=== PATIENT | male | born 1970 | race Caucasian/White ===

== ENCOUNTER 2024-12-14 13:02 | Emergency (ER) | payer OTHER ==
[2024-12-14 13:21] VITALS: TEMP 98.2
[2024-12-14 13:31] LABS: Absolute Neutrophil Ct (ANC) 11.28 x10^3/uL (1.78-5.38); BASOPHIL % 0.1 % (0.2-1.2); Basophil (Absolute #) 0.01 x10^3/uL (0.01-0.08); Eosinophil (Absolute #) 0 x10^3/uL (0.04-0.54); Hematocrit 28.8 % (40.1-51.0); Hemoglobin 9.9 g/dL (13.7-17.5); IMMATURE GRAN # 0.05 x10^3u/L (0.001-0.031); IMMATURE GRAN % 0.4 % (0.001-0.429); Lymphocyte (Absolute #) 0.61 x10^3/uL (1.32-3.57); Lymphocytes % 4.9 % (21.8-53.1); Mean Cell Volume 92.3 fL (79.0-92.2); Mean Corpuscular Hemoglobin 31.7 pg (25.7-32.2); Mean Corpuscular Hgb Concent. 34.4 g/dL (32.3-36.5); Mean Platelet Volume 9.8 fL (9.4-12.4); Monocyte (Absolute #) 0.53 x10^3/uL (0.30-0.82); Monocytes % 4.2 % (5.3-12.2); Neutrophil % 90.4 % (34.0-67.9); Platelet Count 291 x10^3/uL (163-337); Red Blood Count 3.12 x10^6/uL (4.63-6.08); Red Cell Distribution Width 13.2 % (11.6-14.4); White Blood Count 12.5 x10^3/uL (4.23-9.07)
--- NOTE | 2024-12-14 13:37 | ERPHSYRPT ---
- History of Present Illness Time Seen by Provider: 12/14/24 13:20 Historian: patient Exam Limitations: no limitations Patient Subjective Stated Complaint: "blood in stools" Patient states his stools have been black for 3 days. Denies diarrhea or vomiting. Triage Nursing Assessment: Patient brought back to ER in a W/C . Patient able to transfer self from chair to bed with a cane. No SOB. Weak, dry, non-productive cough present. Pale. NO tenderness to abdomen with palpation. He is alert and oriented; anxious, rambling at times. Physician History: 54-year-old male history of CHF presents to our ED for evaluation of dark tarry stools and shortness of breath. Patient observed the dark tarry stools about 2 to 3 days ago. Patient also complains of mild epigastric discomfort. Patient looked up his symptoms on [employer] and found that it could be a gastrointestinal bleed so decided to come to our ED for an evaluation. No trauma no fever no chest pain. No nausea vomiting or diaphoresis. Symptoms are mild to moderate in intensity. No specific worsening or improving factors. Patient is not on blood thinners. Patient otherwise feels well. He voices no other complaints or concerns at this time. Portions of this note were created with voice recognition technology. There may be grammatical, spelling, punctuation or sound alike errors Timing/Duration: today Activities at Onset: none Quality: aching Abdominal Pain Onset Location: epigastric Pain Radiation: no radiation Severity of Pain-Max: moderate Severity of Pain-Current: mild Modifying Factors: Improves With: nothing Associated Symptoms: other (Dark tarry stools) Previous symptoms: no prior history Allergies/Adverse Reactions: No Known Drug Allergies Allergy (Verified 12/14/24 13:09) Home Medications: Furosemide 40 mg [Lasix 40 MG] 40 mg PO DAILY 12/14/24 [History] Sacubitril/Valsartan [Entresto 24 mg-26 mg Tablet] 1 tab PO BID 12/14/24 [History] Hx Tetanus, Diphtheria Vaccination/Date Given: Yes Immunizations Up to Date: Yes Travel Risk - International Travel Have you traveled outside of the country in past 3 weeks: No - Emerging Infectious Disease Are you exhibiting symptoms associated with any current EIDs: Yes Symptoms: Abdominal Pain, Cough: New Onset, Headaches/Body Aches/, Shortness of Breath, Other (Please Comment) Comment: sore throat - Review of Systems Constitutional: No Symptoms, No Fever, No Chills Eyes: No Symptoms Ears, Nose, & Throat: No Symptoms Respiratory: No Symptoms, No Cough, No Dyspnea Cardiac: No Symptoms, No Chest Pain, No Edema, No Syncope Abdominal/Gastrointestinal: No Symptoms, No Abdominal Pain, No Nausea, No Vom iting, No Diarrhea Genitourinary Symptoms: No Symptoms, No Dysuria Musculoskeletal: No Symptoms, No Back Pain, No Neck Pain Skin: No Symptoms, No Rash Neurological: No Symptoms, No Dizziness, No Focal Weakness, No Sensory Changes Psychological: No Symptoms Endocrine: No Symptoms Hematologic/Lymphatic: No Symptoms Immunological/Allergic: No Symptoms All Other Systems: Reviewed and Negative - Past Medical History Pertinent Past Medical History: Yes Cardiac History: Congestive Heart Failure 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 - Past Surgical History Past Surgical History: Yes Musculoskeletal: Orthopedic Surgery - Social History Smoking Status: Current every day smoker Exposure to second hand smoke: Yes Drug Use: marijuana - Social Determinants of Health Will the patient participate in the screening: Declined to provide - Nursing Vital Signs Nursing Vital Signs: Initial Vital Signs Pulse Rate 107 H 12/14/24 13:09 Respiratory Rate 14 12/14/24 13:09 Blood Pressure 109/79 12/14/24 13:09 O2 Sat by Pulse Oximetry 95 12/14/24 13:09 Pain Scale Pain Intensity 4 - Physical Exam General Appearance: no apparent distress, alert Eye Exam: PERRL/EOMI, eyes nml inspection Ears, Nose, Throat Exam: normal ENT inspection, pharynx normal, moist mucous membranes Neck Exam: normal inspection, non-tender, supple, full range of motion Respiratory Exam: normal breath sounds, lungs clear, airway intact, No respiratory distress Cardiovascular Exam: regular rate/rhythm, normal heart sounds Gastrointestinal/Abdomen Exam: soft, tenderness (Epigastric tenderness), No mass Back Exam: normal inspection, normal range of motion, No CVA tenderness, No vertebral tenderness Extremity Exam: normal inspection, normal range of motion, pelvis stable Neurologic Exam: alert, oriented x 3, cooperative, normal mood/affect, sensation nml, No motor deficits Skin Exam: normal color, warm, dry Lymphatic Exam: No adenopathy SpO2 Interpretation: normal SpO2: 98 O2 Delivery: Room Air - Course Nursing assessment & vital signs reviewed: Yes EKG Interpreted by Me: RATE ([id number]), Sinus Tach, NORMAL AXIS, NORMAL INTERVALS, NORMAL QRS - Radiology Exams Chest X-ray Interpretation: Teleradiologist Report (No acute findings) Ordered Tests: Active Orders 24 hr Category Date Time Status Abstract Checker STAT Care 12/14/24 13:20 Completed EKG-ER Only STAT Care 12/14/24 13:19 Completed IV Insertion STAT Care 12/14/24 13:19 Completed Pulse Oximetry (ED) STAT Care 12/14/24 13:19 Completed ABDOMEN AND PELVIS W/0 CONTRAS [CT] Stat Exams 12/14/24 13:37 Completed CHEST 1 VIEW (PORTABLE) Stat Exams 12/14/24 15:37 Completed CBC W DIFF Stat Lab 12/14/24 13:26 Completed CMP Stat Lab 12/14/24 13:26 Completed LIPASE Stat Lab 12/14/24 12:35 Completed Lactic Acid Stat Lab 12/14/24 13:19 Completed NT PRO BNPII Stat Lab 12/14/24 13:26 Completed TROPONIN Q4H Lab 12/14/24 13:26 Completed TROPONIN Q4H Lab 12/14/24 15:40 Completed TROPONIN Q4H Lab 12/14/24 21:14 Completed UA W/RFX UR CULTURE Stat Lab 12/14/24 14:17 Completed Urine Triage Profile Stat Lab 12/14/24 14:17 Completed Medication Summary Discontinued Medications Generic Name Dose Route Start Last Admin Trade Name Freq PRN Reason Stop Dose Admin Pantoprazole Sodium 80 mg/ 500 mls @ 50 mls/hr 12/14/24 16:00 12/14/24 16:26 Sodium Chloride IV 12/15/24 01:59 50 mls/hr .Q10H RAMEZ 50 mls/hr Administration Lactated Ringer's 1,000 mls @ 50 mls/hr 12/14/24 16:30 12/14/24 16:27 Lactated Ringers IV 01/13/25 16:29 50 mls/hr .Q20H RAMEZ Administration Lactated Ringer's Confirm 12/14/24 16:27 Lactated Ringers Administered 12/14/24 16:28 Dose 1,000 mls @ ud IV .STK-MED ONE Ondansetron HCl 4 mg 12/14/24 17:32 12/14/24 17:33 Ondansetron Hcl 4 Mg/2 Ml Vial IV 12/14/24 17:33 4 mg STAT ONE Administration Ondansetron HCl Confirm 12/14/24 17:33 Ondansetron Hcl 4 Mg/2 Ml Vial Administered 12/14/24 17:34 Dose 4 mg .ROUTE .STK-MED ONE Lab/Rad Data: Laboratory Result Diagrams 12/14/24 13:26 12/14/24 13:26 Laboratory Results 12/14/24 12/14/24 12/14/24 Range/Units 21:14 17:06 15:40 WBC (4.23-9.07) x10^3/uL RBC (4.63-6.08) x10^6/uL Hgb (13.7-17.5) g/dL Hct (40.1-51.0) % MCV (79.0-92.2) fL MCH (25.7-32.2) pg MCHC (32.3-36.5) g/dL RDW (11.6-14.4) % Plt Count (163-337) x10^3/uL MPV (9.4-12.4) fL Gran % (34.0-67.9) % Immature Gran % (Auto) (0.001-0.429) % Nucleat RBC Rel Count (0.00-0.2) % Eos # (Auto) (0.04-0.54) x10^3/uL Immature Gran # (Auto) (0.001-0.031) x10^3u/L Absolute Lymphs (auto) (1.32-3.57) x10^3/uL Absolute Monos (auto) (0.30-0.82) x10^3/uL Absolute Nucleated RBC (0.00-0.012) x10^3u/L Lymphocytes % (21.8-53.1) % Monocytes % (5.3-12.2) % Eosinophils % (0.8-7.0) % Basophils % (0.2-1.2) % Absolute Granulocytes (1.78-5.38) x10^3/uL Basophils # (0.01-0.08) x10^3/uL Sodium (135-145) mmol/L Potassium (3.5-5.1) mmol/L Chloride (98-107) mmol/L Carbon Dioxide (22-30) mmol/L Anion Gap (5-15) MEQ/L BUN (9-20) mg/dL Creatinine (0.66-1.25) mg/dL Estimated GFR ML/MIN Glucose (74-106) mg/dL Lactic Acid (0.4-2.0) Calcium (8.4-10.2) mg/dL Total Bilirubin (0.2-1.3) mg/dL AST (17-59) U/L ALT (0-50) U/L Alkaline Phosphatase (38-126) U/L Troponin I 0.053 H* 0.044 H* (0.000-0.033) ng/mL NT-Pro-B Natriuret Pep (<300) pg/mL Serum Total Protein (6.3-8.2) g/dL Albumin (3.5-5.0) g/dL Lipase (23-300) U/L Urine Color (Yellow) Urine Appearance (Clear) Urine pH (4.6-8.0) Ur Specific [place] (1.005-1.030) Urine Protein (Negative) Urine Glucose (UA) (Negative) mg/dL Urine Ketones (Negative) Urine Blood (Negative) Urine Nitrite (Negative) Urine Bilirubin (Negative) Urine Urobilinogen (0.2) mg/dL Ur Leukocyte Esterase (Negative) U Hyaline Cast (Auto) (0-2) /LPF Urine Microscopic RBC (0-5) /HPF Urine Microscopic WBC (0-5) /HPF Ur Epithelial Cells (None Seen) /HPF Urine Bacteria (None Seen) /HPF Urine Culture Reflexed (NO) Urine Opiates Level (NEGATIVE) Ur Methadone (NEGATIVE) Urine Barbiturates (NEGATIVE) Ur Phencyclidine (PCP) (NEGATIVE) Urine Amphetamine (NEGATIVE) U Benzodiazepine Level (NEGATIVE) Urine Cocaine (NEGATIVE) Urine Marijuana (THC) (NEGATIVE) ABO Group O Rh Factor POSITIVE Antibody Screen NEGATIVE (NEGATIVE) 12/14/24 12/14/24 12/14/24 Range/Units 14:17 14:17 13:26 WBC (4.23-9.07) x10^3/uL RBC (4.63-6.08) x10^6/uL Hgb (13.7-17.5) g/dL Hct (40.1-51.0) % MCV (79.0-92.2) fL MCH (25.7-32.2) pg MCHC (32.3-36.5) g/dL RDW (11.6-14.4) % Plt Count (163-337) x10^3/uL MPV (9.4-12.4) fL Gran % (34.0-67.9) % Immature Gran % (Auto) (0.001-0.429) % Nucleat RBC Rel Count (0.00-0.2) % Eos # (Auto) (0.04-0.54) x10^3/uL Immature Gran # (Auto) (0.001-0.031) x10^3u/L Absolute Lymphs (auto) (1.32-3.57) x10^3/uL Absolute Monos (auto) (0.30-0.82) x10^3/uL Absolute Nucleated RBC (0.00-0.012) x10^3u/L Lymphocytes % (21.8-53.1) % Monocytes % (5.3-12.2) % Eosinophils % (0.8-7.0) % Basophils % (0.2-1.2) % Absolute Granulocytes (1.78-5.38) x10^3/uL Basophils # (0.01-0.08) x10^3/uL Sodium (135-145) mmol/L Potassium (3.5-5.1) mmol/L Chloride (98-107) mmol/L Carbon Dioxide (22-30) mmol/L Anion Gap (5-15) MEQ/L BUN (9-20) mg/dL Creatinine (0.66-1.25) mg/dL Estimated GFR ML/MIN Glucose (74-106) mg/dL Lactic Acid (0.4-2.0) Calcium (8.4-10.2) mg/dL Total Bilirubin (0.2-1.3) mg/dL AST (17-59) U/L ALT (0-50) U/L Alkaline Phosphatase (38-126) U/L Troponin I (0.000-0.033) ng/mL NT-Pro-B Natriuret Pep 301 (<300) pg/mL Serum Total Protein (6.3-8.2) g/dL Albumin (3.5-5.0) g/dL Lipase (23-300) U/L Urine Color Yellow (Yellow) Urine Appearance Clear (Clear) Urine pH 6.0 (4.6-8.0) Ur Specific [place] 1.020 (1.005-1.030) Urine Protein 30 (Negative) Urine Glucose (UA) Negative (Negative) mg/dL Urine Ketones Negative (Negative) Urine Blood Negative (Negative) Urine Nitrite Negative (Negative) Urine Bilirubin Negative (Negative) Urine Urobilinogen 0.2 (0.2) mg/dL Ur Leukocyte Esterase Negative (Negative) U Hyaline Cast (Auto) 3-5 A (0-2) /LPF Urine Microscopic RBC 0-2 (0-5) /HPF Urine Microscopic WBC 0-2 (0-5) /HPF Ur Epithelial Cells None Seen (None Seen) /HPF Urine Bacteria None Seen (None Seen) /HPF Urine Culture Reflexed NO (NO) Urine Opiates Level NEGATIVE (NEGATIVE) Ur Methadone NEGATIVE (NEGATIVE) Urine Barbiturates NEGATIVE (NEGATIVE) Ur Phencyclidine (PCP) NEGATIVE (NEGATIVE) Urine Amphetamine POSITIVE A (NEGATIVE) U Benzodiazepine Level NEGATIVE (NEGATIVE) Urine Cocaine NEGATIVE (NEGATIVE) Urine Marijuana (THC) NEGATIVE (NEGATIVE) ABO Group Rh Factor Antibody Screen (NEGATIVE) 12/14/24 12/14/24 12/14/24 Range/Units 13:26 13:26 13:26 WBC 12.5 H (4.23-9.07) x10^3/uL RBC 3.12 L (4.63-6.08) x10^6/uL Hgb 9.9 L (13.7-17.5) g/dL Hct 28.8 L (40.1-51.0) % MCV 92.3 H (79.0-92.2) fL MCH 31.7 (25.7-32.2) pg MCHC 34.4 (32.3-36.5) g/dL RDW 13.2 (11.6-14.4) % Plt Count 291 (163-337) x10^3/uL MPV 9.8 (9.4-12.4) fL Gran % 90.4 H (34.0-67.9) % Immature Gran % (Auto) 0.4 (0.001-0.429) % Nucleat RBC Rel Count 0.0 (0.00-0.2) % Eos # (Auto) 0 L (0.04-0.54) x10^3/uL Immature Gran # (Auto) 0.05 H (0.001-0.031) x10^3u/L Absolute Lymphs (auto) 0.61 L (1.32-3.57) x10^3/uL Absolute Monos (auto) 0.53 (0.30-0.82) x10^3/uL Absolute Nucleated RBC 0.00 (0.00-0.012) x10^3u/L Lymphocytes % 4.9 L (21.8-53.1) % Monocytes % 4.2 L (5.3-12.2) % Eosinophils % 0.0 L (0.8-7.0) % Basophils % 0.1 L (0.2-1.2) % Absolute Granulocytes 11.28 H (1.78-5.38) x10^3/uL Basophils # 0.01 (0.01-0.08) x10^3/uL Sodium 135 (135-145) mmol/L Potassium 4.3 (3.5-5.1) mmol/L Chloride 106 (98-107) mmol/L Carbon Dioxide 16 L* (22-30) mmol/L Anion Gap 17.8 H (5-15) MEQ/L BUN 45 H (9-20) mg/dL Creatinine 0.87 (0.66-1.25) mg/dL Estimated GFR 101.3 ML/MIN Glucose 154 H (74-106) mg/dL Lactic Acid (0.4-2.0) Calcium 9.8 (8.4-10.2) mg/dL Total Bilirubin 0.30 (0.2-1.3) mg/dL AST 30 (17-59) U/L ALT 24 (0-50) U/L Alkaline Phosphatase 74 (38-126) U/L Troponin I 0.049 H* (0.000-0.033) ng/mL NT-Pro-B Natriuret Pep (<300) pg/mL Serum Total Protein 6.4 (6.3-8.2) g/dL Albumin 3.7 (3.5-5.0) g/dL Lipase (23-300) U/L Urine Color (Yellow) Urine Appearance (Clear) Urine pH (4.6-8.0) Ur Specific [place] (1.005-1.030) Urine Protein (Negative) Urine Glucose (UA) (Negative) mg/dL Urine Ketones (Negative) Urine Blood (Negative) Urine Nitrite (Negative) Urine Bilirubin (Negative) Urine Urobilinogen (0.2) mg/dL Ur Leukocyte Esterase (Negative) U Hyaline Cast (Auto) (0-2) /LPF Urine Microscopic RBC (0-5) /HPF Urine Microscopic WBC (0-5) /HPF Ur Epithelial Cells (None Seen) /HPF Urine Bacteria (None Seen) /HPF Urine Culture Reflexed (NO) Urine Opiates Level (NEGATIVE) Ur Methadone (NEGATIVE) Urine Barbiturates (NEGATIVE) Ur Phencyclidine (PCP) (NEGATIVE) Urine Amphetamine (NEGATIVE) U Benzodiazepine Level (NEGATIVE) Urine Cocaine (NEGATIVE) Urine Marijuana (THC) (NEGATIVE) ABO Group Rh Factor Antibody Screen (NEGATIVE) 12/14/24 12/14/24 Range/Units 13:19 12:35 WBC (4.23-9.07) x10^3/uL RBC (4.63-6.08) x10^6/uL Hgb (13.7-17.5) g/dL Hct (40.1-51.0) % MCV (79.0-92.2) fL MCH (25.7-32.2) pg MCHC (32.3-36.5) g/dL RDW (11.6-14.4) % Plt Count (163-337) x10^3/uL MPV (9.4-12.4) fL Gran % (34.0-67.9) % Immature Gran % (Auto) (0.001-0.429) % Nucleat RBC Rel Count (0.00-0.2) % Eos # (Auto) (0.04-0.54) x10^3/uL Immature Gran # (Auto) (0.001-0.031) x10^3u/L Absolute Lymphs (auto) (1.32-3.57) x10^3/uL Absolute Monos (auto) (0.30-0.82) x10^3/uL Absolute Nucleated RBC (0.00-0.012) x10^3u/L Lymphocytes % (21.8-53.1) % Monocytes % (5.3-12.2) % Eosinophils % (0.8-7.0) % Basophils % (0.2-1.2) % Absolute Granulocytes (1.78-5.38) x10^3/uL Basophils # (0.01-0.08) x10^3/uL Sodium (135-145) mmol/L Potassium (3.5-5.1) mmol/L Chloride (98-107) mmol/L Carbon Dioxide (22-30) mmol/L Anion Gap (5-15) MEQ/L BUN (9-20) mg/dL Creatinine (0.66-1.25) mg/dL Estimated GFR ML/MIN Glucose (74-106) mg/dL Lactic Acid 1.2 (0.4-2.0) Calcium (8.4-10.2) mg/dL Total Bilirubin (0.2-1.3) mg/dL AST (17-59) U/L ALT (0-50) U/L Alkaline Phosphatase (38-126) U/L Troponin I (0.000-0.033) ng/mL NT-Pro-B Natriuret Pep (<300) pg/mL Serum Total Protein (6.3-8.2) g/dL Albumin (3.5-5.0) g/dL Lipase 161 (23-300) U/L Urine Color (Yellow) Urine Appearance (Clear) Urine pH (4.6-8.0) Ur Specific [place] (1.005-1.030) Urine Protein (Negative) Urine Glucose (UA) (Negative) mg/dL Urine Ketones (Negative) Urine Blood (Negative) Urine Nitrite (Negative) Urine Bilirubin (Negative) Urine Urobilinogen (0.2) mg/dL Ur Leukocyte Esterase (Negative) U Hyaline Cast (Auto) (0-2) /LPF Urine Microscopic RBC (0-5) /HPF Urine Microscopic WBC (0-5) /HPF Ur Epithelial Cells (None Seen) /HPF Urine Bacteria (None Seen) /HPF Urine Culture Reflexed (NO) Urine Opiates Level (NEGATIVE) Ur Methadone (NEGATIVE) Urine Barbiturates (NEGATIVE) Ur Phencyclidine (PCP) (NEGATIVE) Urine Amphetamine (NEGATIVE) U Benzodiazepine Level (NEGATIVE) Urine Cocaine (NEGATIVE) Urine Marijuana (THC) (NEGATIVE) ABO Group Rh Factor Antibody Screen (NEGATIVE) - Progress Progress: improved Progress Note: Regional declined transfer at approximately 5 PM because they are not capable of performing interventional procedure in the event the patient's GI bleed worsens We contacted [facility]. I spoke to Dr. Aleman hospitalist and Dr. Oliver javascript developer at 5:24 PM. They accepted transfer to [facility]. 12/14/24 17:27 54-year-old male presents to emergency department for evaluation of dark tarry stools and epigastric pain. CT abdomen pelvis negative for acute intra- abdominal pathology. CT abdomen pelvis suggestive of cystitis however UA negative for UTI. Troponin elevated however patient without chest pain shortness of breath. Patient's hemoglobin compared to hemoglobin obtained at outside hospital in October. There has been a 2 g hemoglobin drop. Patient with tachycardia however in light of patient's history of CHF careful administration of IV fluids implemented. In light of patient's cardiac involvement tachycardia elevated troponin and downtrending hemoglobin likely secondary to a GI bleed patient transferred to [facility] for higher level of care. Plan of care discussed with patient. Patient agreed to transfer to [facility] for further evaluation and treatment. Portions of this note were created with voice recognition technology. There may be grammatical, spelling, punctuation or sound alike errors Complexity of problem addressed is moderate acute complicated. No critical care time. Complex of data reviewed and analyzed is extensive. Test ordered chest reviewed results analyzed and correlated clinically with history and physical exam. Management discussed with both hospitalist and javascript developer. Patient's medical records reviewed from outside hospital. Risk of complication and or risk of morbidity/mortality of patient management is high. Patient requires hospitalization for further evaluation and treatment. Patient requires transfer to higher level of care. Vital stable. Time spent to discharge patient is approximately 20 minutes. Plan of care established via shared decision making. No social determinants of health present to impede follow-up. Portions of this note were created with voice recognition technology. There may be grammatical, spelling, punctuation or sound alike errors 12/15/24 04:28 Counseled pt/family regarding: lab results, diagnosis, rad results - Departure Departure Disposition: Transfer Clinical Impression: GI bleed, Tachycardia, Methamphetamine use, Symptomatic anemia, Metabolic ac idosis, Dehydration Condition: Stable Critical Care Time: No Referrals: DOCTOR,NO FAMILY [Primary Care Provider] - Follow up/PCP as directed
[2024-12-14 14:10] LABS: ALBUMIN 3.7 g/dL (3.5-5.0); ANION GAP 17.8 MEQ/L (5-15); BILIRUBIN,TOTAL 0.3 mg/dL (0.2-1.3); Calcium 9.8 mg/dL (8.4-10.2); Creatinine 1 0.87 mg/dL (0.66-1.25); EST GLOMERULAR FILTRATION RATE 101.3 ML/MIN; Potassium 4.3 mmol/L (3.5-5.1); Total Protein 6.4 g/dL (6.3-8.2)
[2024-12-14 14:28] LABS: Appearance Clear (Clear); Bacteria None Seen /HPF (None Seen); Bilirubin Negative (Negative); Blood Negative (Negative); Epithelial Cells None Seen /HPF (None Seen); Glucose, Urine Negative (Negative); Ketones Negative (Negative); Leukocyte Esterase Negative (Negative); Nitrite Negative (Negative); Protein,Urine Dip 30 (Negative); RBC 0-2 /HPF (0-5); Urobilinogen 0.2 mg/dL (0.2); WBC 0-2 /HPF (0-5)
[2024-12-14 14:45] LABS: Amphetamine,Urine POSITIVE (NEGATIVE); Barbiturate,Urine NEGATIVE (NEGATIVE); Benzodiazepine,Urine NEGATIVE (NEGATIVE); Cocaine,Urine NEGATIVE (NEGATIVE); Methadone,Urine NEGATIVE (NEGATIVE); Opiate,Urine NEGATIVE (NEGATIVE); PCP,Urine NEGATIVE (NEGATIVE); THC,Urine NEGATIVE (NEGATIVE)
--- NOTE | 2024-12-14 14:51 | XRAY ---
Indication: Pain. Multiple contiguous images obtained through abdomen and pelvis without contrast. Comparison: None Mild diffuse respiration artifact and beam artifact from right total hip arthroplasty. Lung bases grossly clear. Heart not enlarged. Noncontrasted stomach and bowel loops appear nonobstructed. Appendix not clearly visualized. Scattered sigmoid diverticulosis without diverticulitis. Mildly distended urinary bladder demonstrates moderate circumferential wall thickening, possible cystitis. Multiple nonobstructing bilateral renal calculi, largest 7 mm left lower pole. No free fluid/air. Remaining liver, gallbladder, pancreas, spleen, adrenal glands, kidneys, ureters, and bladder are unremarkable for noncontrast exam. Minimal aortic calcifications without AAA. Osseous structures intact with osteopenia, mild/moderate multilevel thoracolumbar degenerative spondylosis greatest at L5-S1, and markedly advanced left hip degenerative arthropathy. Impression: 1. Respiration artifact and beam artifact from right hip arthroplasty. 2. Abnormal urinary bladder wall circumferential wall thickening. Rule out cholecystitis. 3. Chronic findings including sigmoid diverticulosis, nonobstructing bilateral renal micro-calculi, arteriosclerotic disease, and chronic bony findings. 4. Remaining CT abdomen/pelvis without contrast exam is negative.
--- NOTE | 2024-12-14 15:59 | XRAY ---
Indication: Short of breath. Comparison: None Portable chest demonstrates normal heart and lungs. Bony thorax intact with osteopenia and mild degenerative changes. No acute findings.
[2024-12-14] MEDS: PROTONIX 40 MG IV*** 80 MG in Sodium Chloride 0.9% 500 ML 500 ML IV SCH (16:26)
[2024-12-14] MEDS ORDERED: Lactated Ringers 1,000 ML IV ONE (16:27)
[2024-12-14] MEDS: Lactated Ringers 1,000 ML IV SCH (16:27)
[2024-12-14] MEDS: Zofran 4 MG/2 ML VIAL IV ONE (17:33)
[2024-12-14] MEDS ORDERED: Zofran 4 MG/2 ML VIAL ONE (17:33)
[2024-12-14 18:06] LABS: ABO TYPING O; Antibody Screen NEGATIVE (NEGATIVE); RH TYPING POSITIVE
[2024-12-14 21:13] VITALS: BP 91/67; PULSE 115; RESP 22
[2024-12-15 04:34] VITALS: O2SAT 98
== END 2024-12-14 21:30 | disposition short-term general hospital (02) ==
LOC: ED 13:02
DX: K92.2 Gastrointestinal hemorrhage, unspecified (principal); R00.0 Tachycardia, unspecified; F15.90 Other stimulant use, unspecified, uncomplicated; D64.9 Anemia, unspecified; E87.20 Acidosis, unspecified; E86.0 Dehydration; R06.02 Shortness of breath; R10.13 Epigastric pain; Z79.899 Other long term (current) drug therapy; Z72.0 Tobacco use
CPT/HCPCS: 36415; 71045; 74176; 80053; 80307; 81001; 83605; 83690; 83880; 84484; 85025; 86850; 86900; 86901; 93005; 93041; 94760; 96366; 96374; 96375; 99285; J2405